=== PATIENT | female | born 1960 | race Caucasian/White ===

== ENCOUNTER 2020-04-28 08:13 | Observation (INO) | payer OTHER ==
[~2020-04-28] VITALS: Ht 162.6 cm; Wt 86.3 kg
[2020-04-28 09:34] LABS: COLLECTION METHOD CLEAN CATCH
[2020-04-28 09:41] LABS: BASO # 0.1 (0.0-0.2); BASO % 0.5 % (0.0-2.0); EOS # 0.1 (0.0-0.7); EOS % 0.6 % (0-4.0); GRAN # 7.5 (1.4-6.5); GRAN % 74.4 % (42.2-75.2); HEMOGLOBIN 13.1 g/dl (12.5-16.0); LYMPH # 1.8 (1.2-3.4); LYMPH % 17.9 % (20.0-51.0); MEAN CELL VOLUME 87 fl (80.0-100.0); MEAN CORPUSCULAR HEMOGLOBIN 28 pg (27.0-31.0); MEAN CORPUSCULAR HGB CONC 32 g/dl (33.0-37.0); MEAN PLATELET VOLUME 10.3 fl (7.4-10.4); MONO # 0.7 (0.1-0.6); MONO % 6.4 % (1.7-9.3); PLATELET COUNT 281 K/mm3 (130-400); REDCELL DISTRIBUTION WIDTH-CV 13.2 % (11.5-14.5)
[2020-04-28 09:51] LABS: MUCOUS Present /lpf; PH 5 (5-8); URINE APPEARANCE Hazy; URINE BACTERIA Rare /hpf; URINE BILIRUBIN Negative (NEGATIVE); URINE BLOOD 2+ (NEGATIVE); URINE COLOR Yellow; URINE GLUCOSE Negative (NEGATIVE); URINE KETONE 1+ (NEGATIVE); URINE LEUKOCYTE ESTERASE 2+ (NEGATIVE); URINE NITRATE Negative (NEGATIVE); URINE PROTEIN(semi-quant) Negative (NEGATIVE); URINE UROBILINOGEN Negative (NEGATIVE)
[2020-04-28 09:56] LABS: ALBUMIN 3.8 gm/dL (3.5-5.0); BILIRUBIN,TOTAL 1.2 mg/dL (0.0-1.0); C-REACTIVE PROTEIN 3.4 mg/dL (0.0-0.9); CALCIUM 8.9 mg/dL (8.4-10.2); CREATININE, serum 0.63 (0.52-1.25); POTASSIUM 3.9 mmol/L (3.4-5.0); TOTAL PROTEIN 7.1 gm/dL (6.4-8.2)
[2020-04-28] MEDS ORDERED: OMNICEF 300MG300 MG PO (09:58)
[2020-04-28] MEDS ORDERED: COLESTID 1GM1 G PO (12:14)
[2020-04-28] MEDS ORDERED: CALCIUM WITH D31 CTB (12:16)
[2020-04-28] MEDS ORDERED: CYANOCOBAL1000 MCG/M IM (12:18)
[2020-04-28 13:06] VITALS: BP 112/61; PULSE 88; TEMP 98.6
[2020-04-28 17:02] VITALS: BP 100/62; PULSE 84; TEMP 98.9
--- NOTE | 2020-04-28 18:00 | NUR ---
Patient is doing well. Her admission assessments have been completed. Patients pain has not been bad since getting up from ED. No bowel movements or gas passed. No complaints of nausea. No other changes at this time. Call light within reach.
[2020-04-28 20:26] VITALS: BP 95/47; PULSE 96; TEMP 98
--- NOTE | 2020-04-28 21:58 | NUR ---
REPORTS DIFFUSE ABDOMINAL PAIN 03/09. MEDICATED WITH DILAUDID 0.5MG IVP AT THIS TIME. DENIES NAUSEA. ENCOURAGED TO AMBULATE IN HALLWAY. IVF TO RIGHT AC INFUSING WITHOUT REDNESS OR SWELLING. IS ALERT AND ORIENTED X4.
--- NOTE | 2020-04-28 22:01 | NUR ---
MEDICATED WITH DILAUDID 0.5MG IVP 03/09 DIFFUSE ABDOMEN. DENIES NAUSEA.
--- NOTE | 2020-04-28 23:00 | NUR ---
PT AMBULATED IN HALLWAY AND REPORTS PASSING GAS. SITTING ON WINDOW SEAT IN ROOM. NO BM YET THIS SHIFT.
[2020-04-29] VITALS (8 sets, daily range): BP systolic 83–105; BP diastolic 43–64; PULSE 62–82; TEMP 98–98.6
--- NOTE | 2020-04-29 00:23 | NUR ---
RECHECKED PT B/P AFTER INTIAL LOW READ. MANUAL READ 92/60. PT REPORTS THIS IS NORMAL FOR HER.
--- NOTE | 2020-04-29 05:00 | NUR ---
Pt up ambulating in the hallway, reports passing flatus, no stool. Denies pain at this time.
[2020-04-29 09:20] LABS: BASO % 0.6 % (0.0-2.0); EOS # 0.2 (0.0-0.7); EOS % 3.3 % (0-4.0); GRAN # 2.8 (1.4-6.5); GRAN % 56.5 % (42.2-75.2); LYMPH # 1.6 (1.2-3.4); LYMPH % 33.7 % (20.0-51.0); MEAN CELL VOLUME 90 fl (80.0-100.0); MEAN CORPUSCULAR HGB CONC 31 g/dl (33.0-37.0); MEAN PLATELET VOLUME 10.1 fl (7.4-10.4); MONO # 0.3 (0.1-0.6); MONO % 5.7 % (1.7-9.3); PLATELET COUNT 220 K/mm3 (130-400); RED BLOOD COUNT 3.87 M/mm3 (4.10-5.30); REDCELL DISTRIBUTION WIDTH-CV 13.4 % (11.5-14.5)
[2020-04-29 09:26] LABS: HEMATOCRIT 34.9 % (37.0-47.0); HEMOGLOBIN 10.8 g/dl (12.5-16.0); MEAN CORPUSCULAR HEMOGLOBIN 28 pg (27.0-31.0)
[2020-04-29 09:30] LABS: ALBUMIN 2.9 gm/dL (3.5-5.0); BILIRUBIN,TOTAL 0.9 mg/dL (0.0-1.0); CALCIUM 7.9 mg/dL (8.4-10.2); CREATININE, serum 0.67 (0.52-1.25); POTASSIUM 3.7 mmol/L (3.4-5.0); TOTAL PROTEIN 5.7 gm/dL (6.4-8.2)
--- NOTE | 2020-04-29 09:47 | NUR ---
Lead Applier met with patient to discuss discharge planning. Patient lives alone in [place] but reports her daughter, Joanie (ph#[phone]) also lives in [place]. Patient goes to the [facility] for primary care and has medications mailed to her home. Patient also utilizes [facility] as needed. Patient does not use any DME and is independent with [facility]. Patient does not have Advance Directives and was not interested in designating DPOA-HC at this time. Patient has five children. Nathan, Joanie, Val, Thomas, and Garima. Patient plans to return home upon discharge and advised she already has transportation arrangements. No needs identified at this time.
--- NOTE | 2020-04-29 18:00 | NUR ---
Patient did well today. She has been up ambulating. She tried to have some luquids wth break/lunch but her pain increased instantly so she stopped. She stated her pain was similar to her pain before. SHE has been up walking around several times in the hallways. She has started to pass some flatus. No other changes at this time. Call light within reach.
--- NOTE | 2020-04-29 20:00 | NUR ---
Pt ambulating in hallway. Reports passing gas and having small piece of stool. IVF continue to right AC. Taking clear liquids without problem. Bowel sounds active.
--- NOTE | 2020-04-29 21:44 | NUR ---
Pt reports diffuse abd pain 5/10. Dilaudid 0.5mg IVP given.
--- NOTE | 2020-04-30 04:00 | NUR ---
Denies needs at this time.
[2020-04-30 04:08] VITALS: BP 104/64; PULSE 63; TEMP 97.7
--- NOTE | 2020-04-30 05:20 | NUR ---
AWAKE, RATES PAIN 6/10 TO ABDOMEN. MEDICATED WITH DILAUDID 0.5MG IVP AT THIS TIME. NO FURTHER BM THIS SHIFT.
[2020-04-30 07:20] LABS: BASO % 0.6 % (0.0-2.0); EOS # 0.2 (0.0-0.7); EOS % 4.5 % (0-4.0); GRAN # 2.1 (1.4-6.5); GRAN % 45.7 % (42.2-75.2); LYMPH # 1.9 (1.2-3.4); LYMPH % 41.1 % (20.0-51.0); MEAN CELL VOLUME 91 fl (80.0-100.0); MEAN CORPUSCULAR HEMOGLOBIN 28 pg (27.0-31.0); MEAN CORPUSCULAR HGB CONC 31 g/dl (33.0-37.0); MEAN PLATELET VOLUME 10.4 fl (7.4-10.4); MONO # 0.4 (0.1-0.6); MONO % 7.9 % (1.7-9.3); PLATELET COUNT 226 K/mm3 (130-400); RED BLOOD COUNT 3.95 M/mm3 (4.10-5.30); REDCELL DISTRIBUTION WIDTH-CV 13.3 % (11.5-14.5)
[2020-04-30 07:37] VITALS: BP 106/58; PULSE 61; TEMP 97.6
[2020-04-30 07:44] LABS: HEMATOCRIT 35.8 % (37.0-47.0)
[2020-04-30 07:47] LABS: ALBUMIN 3.1 gm/dL (3.5-5.0); BILIRUBIN,TOTAL 0.7 mg/dL (0.0-1.0); CALCIUM 8.3 mg/dL (8.4-10.2); CREATININE, serum 0.61 (0.52-1.25); POTASSIUM 3.6 mmol/L (3.4-5.0)
--- NOTE | 2020-04-30 08:00 | NUR ---
Patient resting in bed at this time. Patient is alert and oriented, answers questions appropriately. Patient states that she is feeling a bit bloated but has been walking in the halls and keeping clear lquids down with no nausea. Patient denies pain or needs. Bowel sounds active x4. Call light within reach.
[2020-04-30 12:14] VITALS: BP 115/60; PULSE 76; TEMP 98.1
--- NOTE | 2020-04-30 17:00 | NUR ---
Discharge teaching completed. Discussed follow up appointments, discharge diet, activity, and answered questions. Patient denies further questions or needs. INT removed, catheter intact, hemostasis achieved. Patient escorted to ED entrance where she entered a private vehicle.
== END 2020-04-30 17:00 | disposition home or self-care (01) ==
LOC: COL.ER 08:13 → SURG 12:07
PROVIDERS: Emergency Medicine; ADMIT Surgery
DX: K56.609 Unspecified intestinal obstruction, unspecified as to partial versus complete obstruction (principal); K50.90 Crohn's disease, unspecified, without complications; Z93.2 Ileostomy status; Z79.899 Other long term (current) drug therapy; Z88.1 Allergy status to other antibiotic agents; Z88.5 Allergy status to narcotic agent
CPT/HCPCS: A9284; C9113; G0378; J0696; J1170; J1885; J2405; J3010; J7030; J7120; Q9967

== ENCOUNTER → 2020-06-24 | Outpatient (CLI) | payer OTHER ==
[~2020-06-24] MED LIST: CALCIUM WITH D31 CTB; COLESTID 1GM1 G PO; CYANOCOBAL1000 MCG/M IM; OMNICEF 300MG300 MG PO
== END ==
LOC: MC.RAD 07:30
DX: Z12.31 Encounter for screening mammogram for malignant neoplasm of breast (principal)

== ENCOUNTER → 2021-09-15 | Outpatient (CLI) | payer OTHER | LOC: COL.RAD 06:46 | DX: K50.90 Crohn's disease, unspecified, without complications (principal); K62.4 Stenosis of anus and rectum | CPT/HCPCS: A9585 ==

== ENCOUNTER → 2023-07-22 | Outpatient (CLI) | payer OTHER | LOC: MC.RAD 06:51 | DX: N63.23 Unspecified lump in the left breast, lower outer quadrant (principal) ==

== ENCOUNTER 2024-04-03 12:44 | Outpatient (CLI) | payer MEDICARE, OTHER ==
[~2024-04-03] VITALS: Ht 162.6 cm; Wt 87.0 kg
[~2024-04-03 12:44] MED LIST changes: +CALCIUM CITRATE1 TA7 PO; +GOOD SENSE LAC3000 U PO; +IMODIUM 2MG CAPS2 MG PO; +LEVBID0.375 MG PO; +MASON NATURAL2000 IU PO; +PRILOSEC 20MG20 MG PO; +ZYRTEC 10MG10 MG PO
[2024-04-03 13:30] VITALS: BP 98/57; PULSE 75; TEMP 98.8
--- NOTE | 2024-04-03 14:46 | NUR ---
PT TOLERATED INFUSION WELL. VS REMAINED WITHIN NORMAL LIMITS. [facility] IV DISCONTINUED. PT FREE FROM ACUTE CONCERNS AND COMPLAINTS.
== END 2024-04-03 14:47 | disposition home or self-care (01) ==
LOC: EUO 12:44
DX: K50.90 Crohn's disease, unspecified, without complications (principal)
CPT/HCPCS: J2327; J7060